=== PATIENT | female | born 1960 | race Caucasian/White ===

== ENCOUNTER → 2016-10-04 | Outpatient (CLI) | payer MEDICARE, OTHER ==
[2016-10-04 16:30] LABS: ABSOLUTE EOSINOPHILS # (AUTO) 0.1 10^3/uL (0.0-0.6); ABSOLUTE LYMPHOCYTES (AUTO) 1.1 10^3/uL (0.5-4.7); ABSOLUTE MONOCYTES (AUTO) 0.3 10^3/uL (0.1-1.4); ABSOLUTE NEUT (AUTO) 3.7 10^3/uL (1.7-8.2); BASOPHILS % (AUTO) 0.5 % (0-2); EOSINOPHILS % (AUTO) 1.3 % (0-6); HEMOGLOBIN 14.4 g/dL (12.0-15.5); HGB HCT DIFFERENCE 0.2; LYMPHOCYTES % (AUTO) 21.2 % (13-45); MEAN CORPUSCULAR HEMOGLOBIN 29.8 pg (27.0-33.4); MEAN CORPUSCULAR HGB CONC 33.4 g/dL (32.0-36.0); MEAN CORPUSCULAR VOLUME 89 fl (80-97); MONOCYTES % (AUTO) 5.6 % (3-13); RED BLOOD COUNT 4.83 10^6/uL (3.72-5.28); RED CELL DISTRIBUTION WIDTH 13.2 % (11.5-14.0); SEGMENTED NEUTROPHILS % (AUTO) 71.4 % (42-78); WHITE BLOOD COUNT 5.2 10^3/uL (4.0-10.5)
== END ==
LOC: OD 15:11
PROVIDERS: ATTEND Pain Medicine Interventional Pain Medicine
DX: D69.9 Hemorrhagic condition, unspecified (principal)
CPT/HCPCS: 36415; 85025

== ENCOUNTER 2017-06-18 06:15 | Day surgery (SDC) | payer MEDICARE, OTHER ==
[2017-06-14 10:54] LABS: ABSOLUTE LYMPHOCYTES (AUTO) 0.7 10^3/uL (0.5-4.7); ABSOLUTE MONOCYTES (AUTO) 0.2 10^3/uL (0.1-1.4); ABSOLUTE NEUT (AUTO) 2.1 10^3/uL (1.7-8.2); BASOPHILS % (AUTO) 0.3 % (0-2); EOSINOPHILS % (AUTO) 1.1 % (0-6); HEMATOCRIT 41.7 % (36.0-47.0); HEMOGLOBIN 14.5 g/dL (12.0-15.5); HGB HCT DIFFERENCE 1.8; LYMPHOCYTES % (AUTO) 22.4 % (13-45); MEAN CORPUSCULAR HEMOGLOBIN 31.1 pg (27.0-33.4); MEAN CORPUSCULAR HGB CONC 34.8 g/dL (32.0-36.0); MEAN CORPUSCULAR VOLUME 90 fl (80-97); MONOCYTES % (AUTO) 5.1 % (3-13); RED BLOOD COUNT 4.65 10^6/uL (3.72-5.28); SEGMENTED NEUTROPHILS % (AUTO) 71.1 % (42-78)
[2017-06-14 10:58] LABS: PARTIAL THROMBOPLASTIN TIME 32.6 SEC (23.5-35.8); PROTHROMBIN TIME 14.6 SEC (11.4-15.4)
[2017-06-14 11:08] LABS: APPEARANCE,URINE CLEAR; BILIRUBIN,URINE NEGATIVE (NEGATIVE); GLUCOSE, URINE NEGATIVE (NEGATIVE); KETONES,URINE NEGATIVE (NEGATIVE); LEUKOCYTE ESTERASE,URINE TRACE (NEGATIVE); NITRITE,URINE NEGATIVE (NEGATIVE); PROTEIN,URINE NEGATIVE (NEGATIVE); URINE SPECIFIC GRAVITY 1.008; UROBILINOGEN,URINE NEGATIVE mg/dL (<2.0)
[~2017-06-18 06:15] MED LIST: CEFAZOLIN 1 GM/D5W RTU 1 GM/50 ML RTUPB IV PRN; LACTATED RINGERS 1000 ML IV PRN; LIDOCAINE 0.5% INJ-PF (5 MG/ML) 50 ML SDV SUBCUT PRN
[2017-06-18] MEDS ORDERED: BUPIVACAINE HCL 0.25% /EPINEPHRINE INJ/PF 30 ML SDV ONE (06:47)
[2017-06-18] MEDS ORDERED: LIDOCAINE 1% INJ-PF (10 MG/ML) 30 ML SDV ONE (06:47)
[2017-06-18] MEDS ORDERED: MIDAZOLAM 2 MG/2 ML INJ ONE (07:16)
[2017-06-18] MEDS ORDERED: FENTANYL CITRATE INJ/PF 100 MCG/2 ML AMPUL ONE (07:16)
[2017-06-18] MEDS ORDERED: PROPOFOL INJ 200 MG/20 ML VIAL IV ONE (07:17)
[2017-06-18] MEDS ORDERED: FENTANYL CITRATE INJ/PF 100 MCG/2 ML AMPUL IV PRN ×3 (08:06)
[2017-06-18] MEDS ORDERED: DIPHENHYDRAMINE HCL 50 MG/ML VIAL IV PRN (08:06)
[2017-06-18] MEDS ORDERED: MEPERIDINE HCL/PF INJ 25 MG/1 ML DISP.SYRIN IV PRN (08:06)
[2017-06-18] MEDS ORDERED: PROMETHAZINE HCL INJ 25 MG/1 ML VIAL IV PRN ×2 (08:06)
[2017-06-18] MEDS ORDERED: CEFAZOLIN INJ 1 GM VIAL ONE (08:40)
[2017-06-18] MEDS ORDERED: HYDROMORPHONE HCL 2 MG TABLET PO PRN (08:42)
[2017-06-18] MEDS: FENTANYL CITRATE INJ/PF 100 MCG/2 ML AMPUL ONE ×2 (08:42→08:47)
[2017-06-18 10:40] VITALS: BP 129/78
--- NOTE | 2017-06-24 11:56 | OPERATIVE REPORT E ---
Operative Report NAME: SELAM LEONARD : 1960 AGE: 56Y DATE OF SURGERY: 06/18/2017 ROOM: PREOPERATIVE DIAGNOSIS: Nonfunctioning intrathecal pump. POSTOPERATIVE DIAGNOSIS: Nonfunctioning intrathecal pump. OPERATIVE PROCEDURE: Pump removal. SURGEON: SHIVAM ANN M.D. 4TH GRADE TEACHER: Dr. Krishna Bolanos INDICATION: Patient no longer using pump. ANESTHESIA: MAC. BLOOD LOSS: Minimal. PROCEDURE NOTE: After obtaining informed consent and advising the patient of the risks and benefits including wound infection, aggravation of pain, allergic reaction and , she was taken to the operating room and placed comfortably in the supine position. MAC anesthesia was administered. She was prepped with chlorhexidine with appropriate drying time prior to draping. The pump was identified in the right lower quadrant. The surgical incision and scar were identified and this was anesthetized with 1% lidocaine followed by 0.25% bupivacaine with epinephrine. Sharp dissection and electrocautery was utilized to breech the capsule of the pump. The pump was easily removed. No heme was noted. The catheter was disconnected and free flowing spinal fluid was noted. The catheter was then tied with two 1-0 Ethibond ties. CSF ceased flowing as expected. The wound was then copiously irrigated with Betadine containing irrigation solution. The capsule was then closed with a 3-0 Vicryl running, locking stitch. The skin was then stapled after further irrigation. Telfa and Tegaderm were placed over this. Additional bupivacaine was injected at the wound edges. The patient was then taken to the PACU for further postoperative care and monitoring. DICTATING PHYSICIAN: SHIVAM ANN M.D. [id number] Y#: [id number] ID: [id number] JOB#: [id number] ACCT: [id number] cc:SHIVAM ANN M.D. >
== END 2017-06-18 10:20 | disposition home or self-care (01) ==
LOC: OROUT 06:15
PROVIDERS: ATTEND Pain Medicine Interventional Pain Medicine
DX: Z45.1 Encounter for adjustment and management of infusion pump (principal); G89.4 Chronic pain syndrome; J45.909 Unspecified asthma, uncomplicated; E11.9 Type 2 diabetes mellitus without complications; E03.9 Hypothyroidism, unspecified; G57.92 Unspecified mononeuropathy of left lower limb; M17.31 Unilateral post-traumatic osteoarthritis, right knee; G57.91 Unspecified mononeuropathy of right lower limb; M19.90 Unspecified osteoarthritis, unspecified site; F17.210 Nicotine dependence, cigarettes, uncomplicated; Z86.73 Personal history of transient ischemic attack (TIA), and cerebral infarction without residual deficits; Z79.01 Long term (current) use of anticoagulants; Z79.51 Long term (current) use of inhaled steroids; Z79.899 Other long term (current) drug therapy
CPT/HCPCS: 36415; 85025; 85610; 85730; 81025; 81001; 62365; J2250; J3490 ×2; J0690 ×2; J3010; A9270; J2704; 300